=== PATIENT | female | born 1950 | race Caucasian/White ===

== ENCOUNTER 2018-04-20 04:02 | Emergency (ER) | payer OTHER ==
[2018-04-20 04:11] VITALS: BP 144/67
[2018-04-20] MEDS ORDERED: FAMOTIDINE 20 MG TABLET PO STA (04:37)
[2018-04-20] MEDS ORDERED: diphenhydrAMINE 25 MG CAPSULE PO STA (04:37)
[2018-04-20] MEDS ORDERED: DEXAMETHASONE 10 MG/ML VIAL PO STA (04:37)
--- NOTE | 2018-04-20 04:52 | ED Physician Documentation ---
PD HPI SKIN - Stated complaint Stated Complaint: RED FACE,RASPY VOICE - Chief complaint Chief Complaint: Allergic Rx - History obtained from History obtained from: Patient - History of Present Illness Timing - onset: Today Timing - details: Gradual onset Location: Face, Chest Quality / character: Discolored. No: Itchy Associated symptoms: No: Fever, Myalgias Contributing factors: Exposed to medication Similar symptoms before: Has not had sx before Recently seen: Clinic - Additional information Additional information: Patient is a 67 year old female with a history of breast CA who recently started chemotherapy. patient states that she had a few doses of some, and started a new medication yesterday. patient states that she woke up this morning and had redness to her face and her upper chest. Patient states that her voice felt a bit raspy so she came to the emergency department. 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 Other Past Medical History: Breast CA--January 2018 - Past Surgical History Past Surgical History: Yes /ENGINEERING INSPECTOR: Mastectomy - Allergies Allergies/Adverse Reactions: Allergies Allergy/AdvReac Type Severity Reaction Status Date / Time clindamycin Allergy Unknown Verified 04/20/18 04:12 ketorolac [From Toradol] Allergy Rash Verified 04/20/18 04:12 Penicillins Allergy Anaphylaxis Verified 04/20/18 04:12 Sulfa (Sulfonamide Allergy Rash Verified 04/20/18 04:11 Antibiotics) - Social History Does the pt smoke?: No Smoking Status: Never smoker Does the pt drink ETOH?: No Does the pt have substance abuse?: No - Immunizations Immunizations: TDAP >10years/unknown - POLST Patient has POLST: No PD ED PE NORMAL - Vitals Vital signs reviewed: Yes - General General: Alert and oriented X 3, No acute distress, Well developed/nourished - HEENT HEENT: PERRL, Moist mucous membranes, Pharynx benign - Cardiac Cardiac: RRR, No murmur - Respiratory Respiratory: No respiratory distress - Abdomen Abdomen: Soft - Extremities Extremities: No deformity - Neuro Neuro: Alert and oriented X 3 Eye Opening: Spontaneous PD ED PE EXPANDED - HEENT HEENT: Other (no tongue or soft palate swelling) - Respiratory Respiratory: Clear to ausultation gilmar. No: Distress, Labored, Stridor, Wheezing - Derm Derm: Rash, Other (erythematous rash of face and chest) SKin visual: 1 - rash 2 - rash Results - Vitals Vitals: Vital Signs - 24 hr 04/20/18 04:05 Temperature 36.9 C Heart Rate 85 Respiratory 16 Rate Blood Pressure 144/67 H O2 Saturation 99 Oxygen O2 Source Room air PD MEDICAL DECISION MAKING - ED course Complexity details: reviewed old records, reviewed results, re-evaluated patient , considered differential, d/w patient, d/w family ED course: Patient was seen and examined at bedside. patient was treated with benadryl, pepcid and decadron (patient is currently on a decadron daily dose). Patient had no facial swelling or significant airway involvement. Patient stated she would call her doctor in a few hours. family was given detailed discharge and follow up instructions. Patient required no further work up and was stable for discharge with outpatient follow up. Departure - Departure Disposition: 01 Home, Self Care Clinical Impression: Drug reaction Condition: Good Instructions: ED Drug React Allergic Follow-Up: primary,care provider [Other] - Tomorrow Comments: Your symptoms are likely secondary to an allergic reaction. You can take benadryl every 6 hrs as needed, 25-50mg. You should call your oncologist today to determine which medications that they want you to stop and which to continue. You should return to the emergency department for facial swelling, tongue/mouth swelling, wheezing, new worsening or uncontrollable symptoms.
== END 2018-04-20 04:56 | disposition home or self-care (01) ==
LOC: ED 04:02
DX: T50.905A Adverse effect of unspecified drugs, medicaments and biological substances, initial encounter (principal); C50.919 Malignant neoplasm of unspecified site of unspecified female breast; Z92.21 Personal history of antineoplastic chemotherapy
CPT/HCPCS: 99282; 99283; A9270

== ENCOUNTER 2018-04-21 19:54 | Outpatient (CLI) | payer OTHER | END 2018-04-21 19:55 | disposition critical access hospital (66) | LOC: EMS 19:54 | PROVIDERS: ATTEND Surgery | DX: R49.0 Dysphonia (principal); R23.8 Other skin changes | CPT/HCPCS: A0425; A0429 ==

== ENCOUNTER 2018-04-21 20:22 | Emergency (ER) | payer OTHER ==
[2018-04-21] MEDS ORDERED: methylPREDNISolone SUCCINATE 125 MG/2 ML VIAL IVP STA (20:34)
[2018-04-21] MEDS ORDERED: diphenhydrAMINE INJ 50 MG/ML VIAL IVP STA (20:34)
[2018-04-21] MEDS ORDERED: SODIUM CHLORIDE 0.9% 1,000 ML IV ONE (20:34)
[2018-04-21] MEDS ORDERED: CETIRIZINE 10 MG TABLET PO STA (20:50)
--- NOTE | 2018-04-21 21:21 | ED Physician Documentation ---
PD HPI SKIN - Stated complaint Stated Complaint: POSS CHEMO REACTION - Chief complaint Chief Complaint: Allergic Rx - History obtained from History obtained from: Patient, EMS - History of Present Illness Timing - onset: How many days ago (4) Timing - details: Gradual onset, Intermittant Location: Face, Chest Quality / character: Discolored Improved by: Benadryl Contributing factors: Exposed to medication Similar symptoms before: Work up / diagnostics, Treatment Recently seen: Emergency Dept - Additional information Additional information: patient is a 67 year old female with a history of breast cancer who is presenting to the emergency department for a rash on her face and chest. patient states that the symptoms started a few days ago after starting a new medication to increase her wbcs. since that time patient has had intermittent flushing and feels like she has a hoarse throat. Patient denies any shortness of breath or facial swelling. patient was seen in the emergency department a few days prior and started on benadryl. patient did speak with the covering oncologist who stated that she could continue with the benadryl and stop her other medications. 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 - Past Surgical History Past Surgical History: Yes /UNIT LEADER: Mastectomy - Allergies Allergies/Adverse Reactions: Allergies Allergy/AdvReac Type Severity Reaction Status Date / Time clindamycin Allergy Unknown Verified 04/21/18 20:29 ketorolac [From Toradol] Allergy Rash Verified 04/21/18 20:29 Penicillins Allergy Anaphylaxis Verified 04/21/18 20:29 Sulfa (Sulfonamide Allergy Rash Verified 04/21/18 20:29 Antibiotics) - Social History Does the pt smoke?: No Smoking Status: Never smoker Does the pt drink ETOH?: No Does the pt have substance abuse?: No - Immunizations Immunizations: TDAP >10years/unknown - POLST Patient has POLST: No PD ED PE NORMAL - Vitals Vital signs reviewed: Yes - General General: Alert and oriented X 3, No acute distress - Cardiac Cardiac: RRR - Respiratory Respiratory: No respiratory distress, Clear bilaterally PD ED PE EXPANDED - HEENT HEENT: Other (no tongue or soft palate swelling) - Respiratory Respiratory: No: Accessory mm use, Wheezing - Derm SKin visual: 1 - rash Results - Vitals Vitals: Vital Signs - 24 hr 04/21/18 20:24 Temperature 36.7 C Heart Rate 78 Respiratory 16 Rate Blood Pressure 193/72 H O2 Saturation 97 Oxygen O2 Source Room air PD MEDICAL DECISION MAKING - ED course Complexity details: reviewed old records, reviewed results, re-evaluated patient , considered differential, d/w patient, d/w family, d/w linux consultant ED course: Patient was seen and examined at bedside. patient was well appearing and had no airway or systemic involvement. the rash was only on the chest. Patient was treated with fluids and solumedrol and benadryl. Case was discussed with patient's oncologist, Dr. Minesh Guerrero who recommended zyrtec as well. Patient was treated with zrytec. Patient had a significant improvement of her symptoms. patient and were given detailed discharge and follow up instructions. Patient was stable for outpatient follow up. - Sepsis Event Vital Signs: Vital Signs - 24 hr 04/21/18 20:24 Temperature 36.7 C Heart Rate 78 Respiratory 16 Rate Blood Pressure 193/72 H O2 Saturation 97 Oxygen O2 Source Room air Departure - Departure Disposition: 01 Home, Self Care Condition: Good Instructions: ED Drug React Allergic Follow-Up: Minesh Peterson MD [Primary Care Provider] - Comments: You should follow up with your oncologist tomorrow. You can continue with the zyrtec as needed and benadryl if it is helpful. Your oncologist states that it will just take some time. You should return to the emergency department for facial swelling, tongue swelling, wheezing or shortness of breath.
[2018-04-21 21:48] VITALS: BP 148/76
== END 2018-04-21 21:48 | disposition home or self-care (01) ==
LOC: EDUNIT# → EDSEX → ED 20:22
DX: R21 Rash and other nonspecific skin eruption (principal); T50.905A Adverse effect of unspecified drugs, medicaments and biological substances, initial encounter; C50.919 Malignant neoplasm of unspecified site of unspecified female breast; Z90.10 Acquired absence of unspecified breast and nipple
CPT/HCPCS: 96374; 99283; 99284; A9270; J1200

== ENCOUNTER 2023-12-22 14:05 | Emergency (ER) | payer OTHER ==
[2023-12-22 14:21] VITALS: O2SAT 100
--- NOTE | 2023-12-22 14:43 | ED Physician Documentation ---
PD HPI HEAD INJURY - Stated complaint Stated Complaint: GLF - Chief complaint Chief Complaint: Trauma Hd/Nk - History obtained from History obtained from: Patient, Family - Additional information Additional information: The patient comes to the emergency department chief complaint of facial injury after ground-level fall. She states she was out walking her dog on a rough asphalt road when she caught her foot on the ground and tripped, falling forward. She states she was wearing sunglasses and fell straight onto her face. She states that most of the impact seem to come on her nose and on her hands, which did partially break her fall. She also scraped up her left knee. She has been able to ambulate on the knee since but states it is sore. She did not lose consciousness and was able to get up and start walking back up the hill when her found her. She had some epistaxis at first but this did settle down after a bit. The patient states she just has a lot of pain and swelling about her nasal bridge. No visual changes. No other facial pain or obvious trauma. No neck or back pain. No rib pain or extremity pain. No hip pain. The incident happened a couple of hours ago. No other complaints at this time. She is not on any anticoagulants. 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 - Past Surgical History Past Surgical History: Yes /CATHODE MAKER: Mastectomy - Present Medications Home Medications: Ambulatory Orders Medication Instructions Recorded Confirmed Metoprolol Succinate [Toprol Xl] 12.5 mg PO DAILY 12/22/23 12/22/23 - Allergies Allergies/Adverse Reactions: Allergies Allergy/AdvReac Type Severity Reaction Status Date / Time clindamycin Allergy Unknown Verified 12/22/23 14:18 ketorolac [From Toradol] Allergy Rash Verified 12/22/23 14:18 Methacrylate Analogues Allergy Anaphylaxis Verified 12/22/23 14:20 Penicillins Allergy Anaphylaxis Verified 12/22/23 14:18 Sulfa (Sulfonamide Allergy Rash Verified 12/22/23 14:18 Antibiotics) - Social History Does the pt smoke?: No Smoking Status: Never smoker Does the pt drink ETOH?: No Does the pt have substance abuse?: No - Immunizations Immunizations: TDAP >10years/unknown - POLST Patient has POLST: No PD ED PE NORMAL - Vitals Vital signs reviewed: Yes - General General: Alert and oriented X 3, No acute distress, Well developed/nourished - HEENT HEENT: PERRL, EOMI, Moist mucous membranes, Dentition benign, Other (Patient has moderate swelling and contusion about her nasal bridge fairly symmetrically though slightly worse on the right. Mild bloody residue in bilateral nares. No septal deviation or septal hematoma. No active epistaxis.) - Neck Neck: Supple, no meningeal sign, No bony TTP - Cardiac Cardiac: RRR, No murmur - Respiratory Respiratory: No respiratory distress, Clear bilaterally - Abdomen Abdomen: Soft, Non tender, Non distended - Back Back: No spinal TTP - Derm Derm: Warm and dry, Other (Normal color except for bruising around nasal bridge as above.Abrasions to bilateral palms of hands, as well as left knee anteriorly.) - Extremities Extremities: No deformity, Normal ROM s pain, No edema, Other (Tenderness palpation over left patella without deformity or defect. Able to raise straight leg without difficulty. No instability in any direction. No joint line tenderness. Minimal edema over patella.) - Neuro Neuro: Alert and oriented X 3, chairman of the board 2-12 intact (Grossly intact), Normal speech, Other - Psych Psych: Normal mood, Normal affect Results - Vitals Vitals: Vital Signs - 24 hr 12/22/23 12/22/23 14:11 16:06 Temperature 36.8 C Heart Rate 99 90 Respiratory 18 15 Rate Blood Pressure 154/94 H 155/82 H O2 Saturation 100 100 Oxygen O2 Source Room air - Rads (name of study) CT head Relevant Findings:: Final report received, See rad report (Negative) CT face Relevant Findings:: Final report received, See rad report (Negative) PD Medical Decision Making - ED course Complexity details: reviewed results, re-evaluated patient, considered differential, d/w patient, d/w family ED course: The patient overall was well-appearing in the emergency department but did have some facial swelling and bruising, mainly about her nasal bridge. 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 I discussed with the patient that we will get CT scans of the face and head. I do not think she needs a knee x-ray as she has been ambulatory on her knee and does not have any concern on exam. Patient is agreeable to the plan. She has declined symptomatic management in the ED other than an ice pack. The patient's CT scans were both negative. Patient was found to have swelling around her nasal bridge but no fracture and no fractures of any the rest of her facial bones. I discussed these findings with the patient and her and she stable for discharge home. The patient does not wish to have any prescription medications. We have discussed the usual indications for follow-up and return and we have discussed symptomatic management at home. Departure - Departure Disposition: 01 Home, Self Care Clinical Impression: Nasal contusion Qualifiers: Encounter type: initial encounter Qualified Code(s): S00.33XA - Contusion of nose, initial encounter Closed head injury Qualifiers: Encounter type: initial encounter Qualified Code(s): S09.90XA - Unspecified injury of head, initial encounter Condition: Stable Instructions: ED Contusion Face, ED Head Injury Closed Comments: Your CT scans of the head and face both look good. They been read by the radiologist as negative for any fractures or other concerning findings. You have some bruising and swelling around the bridge of your nose and this will ultimately subside on its own. You may use ice packs if needed and also, ymna-snl-xmetwaf medications like ibuprofen and Tylenol to help with the discomfort. Please follow-up with your primary doctor as needed. Forms: PCP List Discharge Date/Time: 12/22/23 16:07
--- NOTE | 2023-12-22 15:16 | CT Report ---
PROCEDURE: Head WO INDICATIONS: fall/head injury TECHNIQUE: Noncontrast 4.5 mm thick angled axial sections acquired from the foramen magnum to the vertex. For r adiation dose reduction, the following was used: automated exposure control, adjustment of mA and/or kV according to patient size. COMPARISON: None. FINDINGS: Image quality: Excellent. CSF spaces: Basal cisterns are patent. No extra-axial fluid collections. Ventricles are normal in size and shape. Brain: No midline shift. No intracranial masses or hemorrhage. Llanos-white matter interface is norm al. Skull and face: Calvarium and visualized facial bones are intact, without suspicious lesions. Sinuses: Visualized sinuses and mastoids are clear. IMPRESSION: No acute intracranial pathology. Reviewed by: Milind Duke MD on 12/22/2023 3:14 PM PST Approved by: Milind Duke MD on 12/22/2023 3:14 PM PST Station ID: [id number]
--- NOTE | 2023-12-22 15:17 | CT Report ---
PROCEDURE: Maxillofacial WO INDICATIONS: fall/facial trauma TECHNIQUE: Noncontrast 1.5 mm thick axial images acquired from the mandible through the frontal sinuses, with co antione and sagittal reformatting. For radiation dose reduction, the following was used: automated ex posure control, adjustment of mA and/or kV according to patient size. COMPARISON: CT head from the same date FINDINGS: Image quality: Excellent. Bones and teeth: Orbital sinclair are intact. Sinus sinclair show no fracture or deformity. Nasal bones and septum are intact. Visualized portions of the mandible demonstrate no fractures or subluxation. Zygomatic arches are intact. Pterygoid plates are intact. Visualized portions of the skull base an d auditory canals are intact. Sinuses: Paranasal sinuses are aerated, without fluid levels, mucosal thickening, or mucoceles. Mas toid air cells are aerated. Soft tissues: No edema, masses, or fluid collections. No enlarged lymph nodes. No soft tissue lace rations or debris. Vascular: Visualized vascular structures appear normal in the absence of contrast. Bony vascular fo ramina and canals are intact. IMPRESSION: No evidence of facial bone fracture or mandibular fracture. Reviewed by: Milind Duke MD on 12/22/2023 3:16 PM PST Approved by: Milind Duke MD on 12/22/2023 3:16 PM PST Station ID: [id number]
[2023-12-22 16:09] VITALS: BP 155/82
== END 2023-12-22 16:07 | disposition home or self-care (01) ==
LOC: ED 14:05
DX: S00.33XA Contusion of nose, initial encounter (principal); S09.90XA Unspecified injury of head, initial encounter; W01.0XXA Fall on same level from slipping, tripping and stumbling without subsequent striking against object, initial encounter; I10 Essential (primary) hypertension
CPT/HCPCS: 99283; 99284